=== PATIENT | female | born 1945 | race Caucasian/White ===

== ENCOUNTER 2025-08-31 07:40 | Outpatient (CLI) | payer MEDICARE, BC | END 2025-08-31 07:41 | disposition home or self-care (01) | LOC: CSHCT 07:40 | PROVIDERS: ATTEND Orthopaedic Surgery | DX: M51.16 Intervertebral disc disorders with radiculopathy, lumbar region (principal); M48.061 Spinal stenosis, lumbar region without neurogenic claudication; M24.29 Disorder of ligament, other specified site; Z98.890 Other specified postprocedural states | CPT/HCPCS: 72131 ==